=== PATIENT | female | born 1960 | race African-American/Black ===

== ENCOUNTER 2023-03-28 02:45 | Emergency (ER) | payer OTHER ==
[~2023-03-28] VITALS: Ht 162.6 cm; Wt 72.6 kg
[~2023-03-28 02:45] MED LIST: ASPI-1155 PO; CLOP75TA2 PO; COUMADIN; EZET1TAB29 PO; PROP10TA10 PO; TEMA30CA5 PO
[2023-03-28 03:05] VITALS: BP_SYST 125; PULSE 95; RESP 18; TEMP 97.3; O2SAT 96
[2023-03-28] MEDS: MORPHINE 4 MG INJ. 4 MG/ML VIAL IM ONE (03:46)
[2023-03-28] MEDS: ONDANSETRON 4 MG ODT TAB PO ONE (03:47)
[2023-03-28] MEDS ORDERED: LIDOCAINE PATCH 5% 1 EA TP ONE (03:51)
[2023-03-28] MEDS ORDERED: ONDA-8 TL (04:45)
[2023-03-28 04:53] VITALS: BP_SYST 135; PULSE 89; RESP 15; TEMP 97.6; O2SAT 98
[2023-03-28] MEDS: HYDROcodone/ACETAMIN 5-325 MG TAB (NORCO/ VICODIN) PO ONE (05:00)
== END 2023-03-28 04:53 | disposition home or self-care (01) ==
LOC: SED 02:45
DX: M54.16 Radiculopathy, lumbar region (principal); G89.29 Other chronic pain; R11.0 Nausea; Z88.8 Allergy status to other drugs, medicaments and biological substances; Z88.5 Allergy status to narcotic agent; Z88.6 Allergy status to analgesic agent; Z88.1 Allergy status to other antibiotic agents; Z79.899 Other long term (current) drug therapy; Z90.710 Acquired absence of both cervix and uterus; Z90.89 Acquired absence of other organs; Z90.49 Acquired absence of other specified parts of digestive tract
CPT/HCPCS: 99283; 96372; Q0162; J2270